=== PATIENT | female | born 1955 | race Two or more races ===

== ENCOUNTER 2018-09-26 08:33 | Outpatient (CLI) | payer OTHER | END 2018-09-26 08:42 | disposition home or self-care (01) | LOC: SONOGRAMA 08:33 | DX: E04.2 Nontoxic multinodular goiter (principal) ==

== ENCOUNTER 2020-08-30 10:19 | Outpatient (CLI) | payer OTHER | END 2020-08-30 10:25 | disposition home or self-care (01) | LOC: RAD 10:19 | PROVIDERS: ATTEND Specialist | DX: M77.31 Calcaneal spur, right foot (principal) ==

== ENCOUNTER 2023-09-17 08:20 | Outpatient (CLI) | payer OTHER | END 2023-09-17 08:27 | disposition home or self-care (01) | LOC: RAD 08:20 | PROVIDERS: ATTEND Specialist | DX: M86.8X8 Other osteomyelitis, other site (principal) ==

== ENCOUNTER 2023-09-21 12:23 | Inpatient (IN) | payer OTHER ==
[~2023-09-21] VITALS: Ht 162.6 cm; Wt 85.7 kg
[2023-09-21] MEDS ORDERED: HUMALOG100 UNIT/2 SQ (13:17)
[2023-09-21] MEDS ORDERED: ECOTRIN81 MG (13:17)
[2023-09-21] MEDS ORDERED: LANTUS SOL100 UNIT/1 SQ (13:17)
[2023-09-21] MEDS ORDERED: [UNRECOGNIZED DRUG - OTHER] (13:17)
[2023-09-21] MEDS ORDERED: NEURONTIN300 MG PO (13:18)
[2023-09-21] MEDS ORDERED: [UNRECOGNIZED DRUG - OTHER] (13:18)
[2023-09-21] MEDS ORDERED: QBRELIS1 MG/1 ML PO (13:18)
[2023-09-21 15:40] LABS: URINE APPEARANCE Clear; URINE BILIRRUBIN Negative (NEGATIVE); URINE BLOOD Negative; URINE COLOR Yellow; URINE LEUKOCYTE Negative; URINE NITRATE Negative; URINE PROTEIN Negative (NEGATIVE); URINE UROBILINOGEN 0.2 E.U./dl
[2023-09-21 15:43] LABS: URINE BACTERIA 250.6 uL (0.0-1933); URINE RBC 4.1 uL (0.0-20.8); URINE WBC 3.5 uL (0.0-23.2)
[2023-09-21 15:45] LABS: URINE GLUCOSE 250 MG/DL (NEGATIVE)
[2023-09-21 16:01] LABS: HEMATOCRIT 45.9 % (36.0-45.00); HEMOGLOBIN 15.7 g/dL (12.0-15.00); MEAN CELL VOLUME 86.7 fL (80.00-100.00); MEAN CORPUSCULAR HEMOGLOBIN 29.7 pg (27.00-32.0); MEAN CORPUSCULAR HGB CONC 34.2 g/dl (32.0-36.0); PLATELET COUNT 368 K/uL (150-450); RED BLOOD COUNT 5.29 M/uL (4.00-6.00); RED CELL DISTRIBUTION WIDTH 14.5 % (11.5-14.5)
[2023-09-21 16:21] LABS: CALCIUM 9.4 mg/dL (8.5-10.1); CREATININE SERUM 0.76 mg/dL (0.55-1.02); GFR 76.14; INR 1.02; PARTIAL THROMBOPLASTIN TIME 27.3 SECONDS (22.0-34.0); POTASSIUM 4.13 mEq/L (3.5-5.1); PROTHROMBIN TIME 10.7 SECONDS (9.0-11.5)
[2023-09-22 07:23] LABS: CHOL HDL RATIO 4.9 (0-5.0); TSH 0.63 uIU/mL (0.358-3.74)
[2023-09-24 06:18] LABS: HEMATOCRIT 40.5 % (36.0-45.00); HEMOGLOBIN 13.7 g/dL (12.0-15.00); MEAN CELL VOLUME 86.1 fL (80.00-100.00); MEAN CORPUSCULAR HEMOGLOBIN 29.1 pg (27.00-32.0); MEAN CORPUSCULAR HGB CONC 33.7 g/dl (32.0-36.0); PLATELET COUNT 305 K/uL (150-450); RED BLOOD COUNT 4.71 M/uL (4.00-6.00); RED CELL DISTRIBUTION WIDTH 14.6 % (11.5-14.5)
[2023-09-24 06:57] LABS: ALBUMIN 2.8 gm/dL (3.4-5.0); BILIRUBIN TOTAL 1.1 mg/dL (0.3-1.2); CALCIUM 8.8 mg/dL (8.5-10.1); CREATININE SERUM 0.61 mg/dL (0.55-1.02); GFR 98.13; GLOBULINA 3.1 G/DL (2.4-3.5); MAGNESIUM 2.2 mg/dL (1.8-2.4); PHOSPHOROUS 4.1 mg/dL (2.5-4.9); POTASSIUM 4.27 mEq/L (3.5-5.1); TOTAL PROTEIN 5.9 gm/dL (6.4-8.2)
[2023-09-27 06:46] LABS: MEAN CELL VOLUME 86.7 fL (80.00-100.00); MEAN CORPUSCULAR HEMOGLOBIN 28.9 pg (27.00-32.0); MEAN CORPUSCULAR HGB CONC 33.3 g/dl (32.0-36.0); PLATELET COUNT 311 K/uL (150-450); RED BLOOD COUNT 4.85 M/uL (4.00-6.00); RED CELL DISTRIBUTION WIDTH 14.4 % (11.5-14.5)
[2023-09-27 07:34] LABS: BILIRUBIN TOTAL 0.79 mg/dL (0.3-1.2); CALCIUM 8.9 mg/dL (8.5-10.1); CREATININE SERUM 0.5 mg/dL (0.55-1.02); GFR 123.44; GLOBULINA 3.1 G/DL (2.4-3.5); MAGNESIUM 2.1 mg/dL (1.8-2.4); PHOSPHOROUS 3.9 mg/dL (2.5-4.9); TOTAL PROTEIN 6.1 gm/dL (6.4-8.2)
[2023-09-27 07:35] LABS: POTASSIUM 4.52 mEq/L (3.5-5.1)
== END 2023-09-28 22:55 | disposition home or self-care (01) | DRG 540 ==
LOC: ER 12:23 → MEDI 18:48
PROVIDERS: General Practice; Internal Medicine Infectious Disease; Nurse Practitioner Family; ADMIT Internal Medicine; ATTEND Internal Medicine
PROC: B44HZZZ Ultrasonography of Bilateral Lower Extremity Arteries (ICD-10-PCS; 2023-09-21)
PROC: BQ3DZZZ Magnetic Resonance Imaging (MRI) of Right Lower Leg (ICD-10-PCS; principal; 2023-09-22)
PROC: 02HV33Z Insertion of Infusion Device into Superior Vena Cava, Percutaneous Approach (ICD-10-PCS; 2023-09-22)
DX: M86.8X7 Other osteomyelitis, ankle and foot (principal); L97.518 Non-pressure chronic ulcer of other part of right foot with other specified severity; E11.621 Type 2 diabetes mellitus with foot ulcer; L97.514 Non-pressure chronic ulcer of other part of right foot with necrosis of bone; I10 Essential (primary) hypertension; E78.49 Other hyperlipidemia; I73.89 Other specified peripheral vascular diseases; Z79.4 Long term (current) use of insulin; L03.031 Cellulitis of right toe; B96.89 Other specified bacterial agents as the cause of diseases classified elsewhere; E11.65 Type 2 diabetes mellitus with hyperglycemia
CPT/HCPCS: 73221

== ENCOUNTER 2023-10-06 10:46 | Inpatient (IN) | payer OTHER ==
[~2023-10-06] VITALS: Ht 162.6 cm; Wt 85.7 kg
[~2023-10-06 10:46] MED LIST: ECOTRIN81 MG; HUMALOG100 UNIT/2 SQ; LANTUS SOL100 UNIT/1 SQ; NEURONTIN300 MG PO; QBRELIS1 MG/1 ML PO; [UNRECOGNIZED DRUG - OTHER]; [UNRECOGNIZED DRUG - OTHER]
[2023-10-06] MEDS ORDERED: NEURONTIN800 MG PO (10:56)
[2023-10-06] MEDS ORDERED: LISINOPRIL-HCT1 EAC1 PO (10:56)
[2023-10-06 11:57] LABS: ALBUMIN 3.4 gm/dL (3.4-5.0); BILIRUBIN TOTAL 0.58 mg/dL (0.3-1.2); CREATININE SERUM 0.66 mg/dL (0.55-1.02); GFR 89.33; GLOBULINA 3.6 G/DL (2.4-3.5); POTASSIUM 3.78 mEq/L (3.5-5.1)
[2023-10-06 12:29] LABS: HEMATOCRIT 40.9 % (36.0-45.00); HEMOGLOBIN 13.6 g/dL (12.0-15.00); MEAN CELL VOLUME 87.7 fL (80.00-100.00); MEAN CORPUSCULAR HEMOGLOBIN 29.2 pg (27.00-32.0); MEAN CORPUSCULAR HGB CONC 33.2 g/dl (32.0-36.0); PLATELET COUNT 397 K/uL (150-450); RED BLOOD COUNT 4.66 M/uL (4.00-6.00); RED CELL DISTRIBUTION WIDTH 14.2 % (11.5-14.5)
[2023-10-06 19:14] LABS: PH,URINE 7.5 (5.0-8.0); URINE APPEARANCE Cloudy; URINE BILIRRUBIN Negative (NEGATIVE); URINE BLOOD Negative; URINE COLOR Yellow; URINE LEUKOCYTE Small; URINE NITRATE Negative; URINE PROTEIN Negative (NEGATIVE); URINE UROBILINOGEN 0.2 E.U./dl
[2023-10-06 19:18] LABS: URINE BACTERIA 28.9 uL (0.0-1933); URINE EPITHELIAL CELLS 23.7 uL (0.0-38.8); URINE RBC 7.4 uL (0.0-20.8); URINE WBC 34.6 uL (0.0-23.2)
[2023-10-06 19:40] LABS: INR 1.04; PARTIAL THROMBOPLASTIN TIME 20.8 SECONDS (22.0-34.0); PROTHROMBIN TIME 10.9 SECONDS (9.0-11.5)
[2023-10-06 19:51] LABS: URINE GLUCOSE 250 MG/DL (NEGATIVE)
== END 2023-10-08 18:22 | disposition home or self-care (01) | DRG 607 ==
LOC: ER 10:47 → MEDI 17:53 → SEC-K 17:53 → MEDI 18:04
PROVIDERS: General Practice; ADMIT Internal Medicine; ATTEND Internal Medicine
DX: L27.0 Generalized skin eruption due to drugs and medicaments taken internally (principal); M86.8X7 Other osteomyelitis, ankle and foot; T36.1X5A Adverse effect of cephalosporins and other beta-lactam antibiotics, initial encounter; Y92.129 Unspecified place in nursing home as the place of occurrence of the external cause; Z88.0 Allergy status to penicillin